=== PATIENT | male | born 1950 | race Caucasian/White ===

== ENCOUNTER → 2018-04-22 | Outpatient (CLI) | payer OTHER ==
[~2018-04-22] MED LIST: ADULT LOW DOSE81 MG PO; AMLODIPINE BESYL5 MG PO; ASPIRIN325 PO; EFFIENT10 MG; EFFIENT10 MG PO; FISH OIL 1,0001 EAC5 PO; GLUCOPHAGE500 MG PO; LIPITOR40 MG PO; MICARDIS HCT 81 EACH PO; MULTIVITAMINS PO; NITROGLYCERIN0.4 MG SL; POTASSIUM20 PO; TOPROL XL50 MG PO; ZANTAC 150MG T150 M1 PO
== END ==
LOC: NUC 04-17 14:30
DX: I25.10 Atherosclerotic heart disease of native coronary artery without angina pectoris (principal)